=== PATIENT | female | born 1980 | race Caucasian/White ===

== ENCOUNTER 2016-08-29 17:04 | Emergency (ER) | payer BC ==
[~2016-08-29] VITALS: Ht 167.6 cm; Wt 108.6 kg
[~2016-08-29 17:04] MED LIST: PRLSR20 PO
[2016-08-29 17:08] VITALS: TEMP 36.8; Ht 167.6 cm; Wt 108.6 kg
[2016-08-29] MEDS ORDERED: XYLOCAINE 1%/SOD BICARB 20 ML VIAL INFIL ONE (17:30)
[2016-08-29] MEDS ORDERED: DIPHTHERIA/TETANUS/PERTUSSIS 0.5 ML SYR/VIAL IM. ONE (17:30)
[2016-08-29] MEDS ORDERED: BUPIVACAINE 0.5 % 5 MG/1 ML MPF 30ML VIAL INFIL ONE (17:30)
--- NOTE | 2016-08-29 18:00 | DIAGNOSTIC IMAGING REPORT ---
LEFT FIRST TOE 3 VIEWS CLINICAL HISTORY: First toe injury. FINDINGS: 3 views of the left first toe are obtained. No prior studies are available for comparison at the time of dictation. The skeletal structures are well mineralized. No fracture is seen. The first metatarsophalangeal and interphalangeal joints are well-maintained. There has likely been injury to the toenail. Soft tissue edema is noted in the first toe. IMPRESSION: 1. No fracture is seen in the left first toe. 2. Soft tissue swelling and suspect toenail injury. Clinical correlation will be required. Electronically signed by: Mark Melgar M.D. 08/29/2016 5:59 PM Dictated Date/Time: 08/29/2016 5:58 PM
--- NOTE | 2016-08-29 18:17 | EMERGENCY ROOM VISIT NOTE ---
History First contact with patient: 17:10 Chief Complaint: TOE PAIN, INJURY Stated Complaint: BIG TOE NAIL L FOOT History of Present Illness The patient is a 36 year old female who presents to the Emergency Room with complaints of an injury to her left great toenail. The patient states she was carrying an entertainment stand and it slid off, falling onto her toe. The patient states that her left great toenail is almost completely ripped off. She rates her discomfort a 9/10. She did not take any medication for pain. Her tetanus shot is not up-to-date. She denies any pain of the foot other than the toe. Review of Systems A complete 6 point review of systems was reviewed with the patient with pertinent positives and negatives as per history of present illness. All else were negative. Social History Smoking Status: Current Every Day Smoker Current/Historical Medications No Active Prescriptions or Reported Meds Allergies Coded Allergies: Codeine (Verified Adverse Reaction, Unknown, DIZZY & FAINTING SPELLS, ) Physical Exam Vital Signs Date Time Temp Pulse Resp B/P (MAP) Pulse Ox O2 Delivery O2 Flow Rate FiO2 08/29/16 19:42 88 16 136/81 98 08/29/16 17:08 36.8 110 18 128/83 98 Room Air Physical Exam VITALS: Vitals are noted on the nurse's note and reviewed by myself. Vital signs stable. GENERAL: This is a 36-year-old female, in no acute distress, nondiaphoretic, well-developed well-nourished. MUSCULOSKELETAL: The toenail of the left great toe is almost completely avulsed. There is minimal active bleeding. NEURO: Patient was alert and oriented to person place and time. Normal sensation to light and sharp touch. Medical Decision & Procedures ER Provider Diagnostic Interpretation: LEFT FIRST TOE 3 VIEWS FINDINGS: 3 views of the left first toe are obtained. No prior studies are available for comparison at the time of dictation. The skeletal structures are well mineralized. No fracture is seen. The first metatarsophalangeal and interphalangeal joints are well-maintained. There has likely been injury to the toenail. Soft tissue edema is noted in the first toe. IMPRESSION: 1. No fracture is seen in the left first toe. 2. Soft tissue swelling and suspect toenail injury. Clinical correlation will be required. Medications Administered Medications (Trade) Dose Ordered Sig/Leilani Route Start Time Stop Time Status Last Admin Dose Admin Diphtheria/ Pertussis/Tetanus Vacc (Adacel Inj) 0.5 ml ONCE ONCE IM. 08/29/16 17:30 08/29/16 17:31 DC 08/29/16 17:32 0.5 ML Procedure Verbal consent was obtained to perform the procedure. Using sterile technique the wound was cleaned with Betadine. The area was sterilely draped. 6 ml of 1 % buffered lidocaine was used to perform a digital block to anesthetize the left great toe. Once the patient was anesthetized, the wound was copiously irrigated under pressure with sterile saline. The toenail was easily removed. There was no further bleeding. The patient tolerated the procedure well. Medical Decision The patient was evaluated as above. X-ray was performed and showed no fracture of the toe. Under anesthesia, the toenail was removed. I did recommend either replacing the toenail or placing foil under the nail bed to keep the nail fold open. However, the patient adamantly declined this and requested that her toenail be removed and kept off. I did inform her of the risk that her toenail may not grow back or could become infected when it does grow back. She was aware of this risk and declined further procedure. Dressing was applied. Conservative measures were discussed. She verbalized understanding and was discharged home in good condition. Medication reconciliation: I attest that I have personally reviewed the patient' s current medication list. Blood pressure screening: Patient was found to have normal blood pressure on screening and does not require follow-up. Impression Primary Impression: Toenail avulsion Departure Information Dispostion Home / Self-Care Condition GOOD Prescriptions No Active Prescriptions or Reported Meds Referrals No Doctor, Assigned (PCP) Patient Instructions My [facility] Additional Instructions Proper wound care is essential for adequate wound healing and infection prevention. You can shower and clean the wound with soap and water. Do not scour over the wound, pat dry with a towel. Do not submerse the wound (i.e. bathe or dish wash) until the wound has fully healed. You can use an antibiotic ointment with a dressing over the wound for the next 3-4 days. After this time you may leave the wound dry and open to the air. For pain control, you can use the following zibs-pax-qytabld medicines (if >12 yo): - Regular strength (325mg/tab) Tylenol (acetaminophen) 2 tabs every 4-6 hours as needed. Do not exceed 12 tablets in a 24 hour period. Avoid taking more than 4 grams (4000 mg) of Tylenol per day. This includes any other sources of acetaminophen you may take on a regular basis. - Regular strength (200 mg/tab) Advil (ibuprofen) 1-2 tabs every 4-6 hours as needed. Do not exceed a dose of 3200 mg per day. Follow-up with your family doctor as needed. Problem Qualifiers Primary Impression: Toenail avulsion Encounter type: initial encounter Qualified Codes: S91.209A - Unspecified open wound of unspecified toe(s) with damage to nail, initial encounter
[2016-08-29 19:42] VITALS: BP 136/81; PULSE 88; O2SAT 98
== END 2016-08-29 19:25 | disposition home or self-care (01) ==
LOC: C.EDB 17:05 → C.EDD 19:25
DX: S91.209A Unspecified open wound of unspecified toe(s) with damage to nail, initial encounter (principal); W22.03XA Walked into furniture, initial encounter; F17.200 Nicotine dependence, unspecified, uncomplicated; Z23 Encounter for immunization